=== PATIENT | female | born 1950 | race African-American/Black ===

== ENCOUNTER → 2016-10-27 | Day surgery (SDC) | payer MEDICARE, BC ==
[~2016-10-27] VITALS: Ht 154.9 cm; Wt 57.1 kg
[~2016-10-27] MED LIST: *ENALAPRILAT 1.25 MG/ML VIAL PERIprocedural Use ONLY ONE; *RESP: ALBUTEROL 2.5 MG/3 ML NEB (PRN) PERIprocedural Use ONLY NEB ONE; *morphine SULFATE 8 MG/ML PERIprocedure ONLY ONE; ACETAMINOPHEN 1000 MG/100 ML VIAL IV ONE; ACETAMINOPHEN 1000 MG/100 ML VIAL IV SCH; ACETAMINOPHEN/HYDROcodone 325 MG/5 MG TAB PO PRN; CALC1TAB87 PO; DEXAMETHASONE SOD PHOS 4 MG/ML VIAL ONE; DO NOT ADM ANY ANTICOAGULANT DRUGS XX PRN; GELATIN 12 MM/7 MM FOAM ONE; INSULIN HUMAN REGULAR 1,000 UNITS/10 ML VIAL SQ PRN; LACTATED RINGER'S 1000 ML IV SCH; METOPROLOL TARTRATE 25 MG TAB PO PRN; MIDAZOLAM HCL 2 MG/2 ML VIAL ONE; MORPHINE SULFATE 4 MG/ML INJ IV PRN; NIFE20 PO; NORC5TAB PO; ONDANSETRON HCL 4 MG/2 ML VIAL IV PUSH ONE; ONDANSETRON HCL 4 MG/2 ML VIAL IV PUSH PRN; PROPOFOL 200 MG/20 ML AMP IV ONE; SODIUM CHLOR 0.9% 250 ML INJ 250 ML ONE; SODIUM CHLORID 0.9% 500 ML IV SCH; SODIUM CHLORIDE 0.9% INJ 100 ML ONE; THROMBIN (TOPICAL) 5,000 UNIT VIAL ONE; VANCOMYCIN HCL 1000 MG ON-CALL/NS 250 ML IV SCH; VANCOMYCIN HCL 1000 MG VIAL ONE; ceFAZolin INJ 1,000 MG VIAL ONE; ePHEDrine/NS 50 MG/5 ML SYR IV ONE; fentaNYL CITRATE 250 MCG/5 ML AMP ONE
[2016-10-27 12:39] VITALS: BP 167/85; PULSE 55; RESP 16; TEMP 98; O2SAT 99
[2016-10-27 12:44] LABS: AUTOMATED NEUTROPHIL # 3.3 TH/MM3 (1.8-7.7); BASOPHIL # 0.1 TH/MM3 (0-0.2); BASOPHIL % 1.1 % (0.0-2.0); EOSINOPHIL # 0.2 TH/MM3 (0-0.4); EOSINOPHIL % 3.3 % (0.0-4.0); HEMATOCRIT 38.6 % (35.0-46.0); HEMO FLAGS DIFF FINAL; LYMPH % 37.8 % (9.0-44.0); LYMPHOCYTE # 2.4 TH/MM3 (1.0-4.8); MEAN CELL VOLUME 93.2 FL (80.0-100.0); MEAN CORPUSCULAR HEMOGLOBIN 31.3 PG (27.0-34.0); MEAN CORPUSCULAR HGB CONC 33.6 % (32.0-36.0); MONO % 5.1 % (0.0-8.0); NEUT % 52.7 % (16.0-70.0); PLATELET COUNT 193 TH/MM3 (150-450); RED BLOOD COUNT 4.14 MIL/MM3 (4.00-5.30); RED CELL DISTRIBUTION WIDTH 14.9 % (11.6-17.2); WHITE BLOOD COUNT 6.2 TH/MM3 (4.0-11.0)
[2016-10-27 13:01] LABS: BICARBONATE 28.8 MEQ/L (21.0-32.0); POTASSIUM 3.7 MEQ/L (3.5-5.1)
[2016-10-27] MEDS: ceFAZolin 1,000 MG/NS 100 ML IV SCH ×4 (13:05→13:07)
--- NOTE | 2016-10-27 16:30 | HHI.PR ---
cc: Layo Cabral MD Immediate Post Op Note Procedure Date: Oct 27, 2016 Pre Op Diagnosis: Enlarging, symptomatic goiter Post Op Diagnosis: Same Surgeon: Layo Cabral [facility] Social Worker(s): Adelia Tolbert CST Procedure: Total thyroidectomy Findings: Large, bilateral goiter Complications: None Specimen(s) removed: Thyroid gland to pathology Estimated blood loss: 100 ml Anesthesia: General Drains: None IVF (950 ml) Patient to: PACU Patient Condition: Good Date/Time of Procedure: SEE SURGICAL CARE RECORD Layo Cabral MD Oct 27, 2016 16:29
[2016-10-27 17:27] LABS: CALCIUM-PROTEIN CORRECTED 8.9 MG/DL (8.5-10.1)
[2016-10-27 18:15] VITALS: BP 159/80; PULSE 64; RESP 16; TEMP 97.5; O2SAT 97
--- NOTE | 2016-10-28 10:52 | EKG ---
Date Performed: 10/27/2016 Time Performed: 12:38:05 PTAGE: 66 years EKG: SINUS BRADYCARDIA NONSPECIFIC T-WAVE ABNORMALITY BORDERLINE ECG PREVIOUS TRACING : 03/23/2004 17.27 Compared to prior tracing no significant change DOCTOR: Serafin Fitzgerald Interpretating Date/Time 10/28/2016 10:50:28
--- NOTE | 2016-11-18 09:17 | MP ---
cc: DIANELYS CABRAL M.D., BENIGNO J. MD DATE OF SURGERY 10/27/2016 PREOPERATIVE DIAGNOSIS Symptomatic goiter POSTOPERATIVE DIAGNOSIS Symptomatic goiter ANESTHESIA General endotracheal SURGEON Dianelys Cabral MD ESTIMATED BLOOD LOSS 100 mL FLUIDS 950 mL crystalloid COMPLICATIONS None DRAINS None SPECIMEN Thyroid to pathology. FINDINGS Bilateral goiter with gland split in the middle to allow for easier removal. PROCEDURE IN DETAIL The patient was taken to the operating room and placed on the operating table in the supine position. After an adequate level of general endotracheal anesthesia was achieved, a roll was placed behind the shoulders to slightly hyperextend the neck. The neck was prepped and draped. It should be noted that neuro monitoring was accomplished during this case. Time-out was taken confirming the correct patient site and procedure to be performed. An incision was then made two fingerbreadths above the sternal notch in one of the skin lines. The platysma was divided with electrocautery. The strap muscles were then divided in the midline and retracted laterally. Attention was turned to the left side first and dissection was carried out laterally by pulling the gland medially and dissecting very carefully with Kitner dissectors. Dissection was carried out superiorly initially and the focus harmonic scalpel was used directly on the gland to ligate and seal the left superior thyroid artery and vein. When this had been completed, the gland was further rotated medially and the inferior thyroid vessels were divided with the harmonic scalpel as well in a bloodless fashion. The inferior and superior parathyroid glands were identified and swept aside very gently. These appeared viable when attention was turned to the right side. The isthmus of the thyroid was divided and this allowed for better mobilization of the thyroid gland. Dissection was carried out further medially and the left recurrent laryngeal nerve was identified with the nerve probe. Care was taken to stay well away from this nerve. The thyroid was then further dissected with mostly blunt dissection but minimal use of the harmonic scalpel to divide the thyroid gland off of the trachea and thyroid cartilage. A small tuft of thyroid tissue was left near where the nerve coursed into the thyroid cartilage so as not to injure the nerve. The left lobe of the thyroid was then passed off the table. Attention was turned to the right side and the superior thyroid vessels were divided with the harmonic scalpel as before. The gland was rotated medially and the inferior parathyroid gland was easily identified. The superior parathyroid gland was more difficult to identify and while this was swept down, this one was much smaller. The inferior thyroid vessels on the right were identified and divided with the harmonic scalpel as well. The gland was then more easily rotated medially and the right recurrent laryngeal nerve came into view and was identified with the nerve probe. Once again, a small tuft of thyroid tissue was left near the thyroid cartilage so as not to injure the recurrent laryngeal nerve. The gland was completely removed off of the trachea and passed off the table as well. Both nerves were retested and were seen to be active by nerve probe. Both were well away from the area of dissection on both sides. All parathyroid glands were reexamined and felt to be viable. When this was completed, the patient was placed in slight Trendelenburg position. The neck was irrigated on both sides. With hemostasis assured, a small piece of Gelfoam soaked in thrombin was placed on each side of the neck. The strap muscles were reapproximated in the midline with 3-0 Vicryl suture and the platysma closed with 3-0 Vicryl suture in a simple interrupted fashion. The skin was closed with 5-0 Prolene in a running subcuticular fashion. The wound was dressed with Steri-Strips. The patient was extubated in the operating room and both vocal cords were seen to be mobile. She was taken back to the recovery room in stable condition. Sponge, needle and instrument counts were reported be correct. MD HENNA Starks/TERRANCE /10:07 PM /9:09 AM
== END | disposition home or self-care (01) ==
LOC: HSDC 11:52
PROVIDERS: ATTEND Surgery Trauma Surgery
DX: E04.2 Nontoxic multinodular goiter (principal); I10 Essential (primary) hypertension; Z01.810 Encounter for preprocedural cardiovascular examination; Z01.818 Encounter for other preprocedural examination
CPT/HCPCS: 00320; 60240; 80048; 84155; 85025; 88307; 93005; 94664; J0131; J0690; J1100; J2250; J2270; J2405; J3010; J3370; J7050; J7120; J7613